=== PATIENT | male | born 1965 | race Caucasian/White ===

== ENCOUNTER 2018-03-16 10:57 | Inpatient (IN) | payer MEDICARE, MEDICAID ==
[~2018-03-16] VITALS: Ht 180.3 cm; Wt 112.9 kg
[2018-03-16 11:09] VITALS: BP 164/86
[2018-03-16 11:23] LABS: APPEARANCE,URINE CLEAR; BILIRUBIN, URINE NEGATIVE (NEGATIVE); COLOR,URINE PALE YELLOW; GLUCOSE, URINE (UA) NEGATIVE (NEGATIVE); KETONES,URINE NEGATIVE (NEGATIVE); LEUKOCYTE ESTERASE ,URINE NEGATIVE (NEGATIVE); NITRITE,URINE NEGATIVE (NEGATIVE); PH,URINE 7 (4.5-8.0); PROTEIN,URINE NEGATIVE (NEGATIVE); UROBILINOGEN,URINE NORMAL MG/DL (0.0-1.0)
--- NOTE | 2018-03-16 13:21 | Emergency Room Report ---
History of Present Illness General Chief Complaint: Male Urogenital Problems Source: Patient, EMS Present Illness HPI Patient presents with several days of penile pain. This only happens when he urinates. Otherwise there is no pain. It is in the mid shaft of the penis. He denies any blood or change in the color of the urine. No fevers or chills. No rectal pain. Moving his bowels without difficulty. At Board and Care. States no sexual activity. No testicular pain. Never with this problem before. No nausea or vomiting. No URI sy. No chest pain. Has chronic back pain due to osteoarthritis. This is unchanged. H/O schizophrenia. No anxiety or depression at this time. No rashes, joint pain, cough or dyspnea. Allergies: Coded Allergies: HYDROCODONE (Verified Allergy, Unknown, 03/16/18) MORPHINE (Verified Allergy, Unknown, 03/16/18) Patient History Past Medical History: see triage record Social History: Reports: smoking, alcohol use Social History Narrative Board and Care Reviewed Nursing Documentation: PMH: Agreed; PSxH: Agreed Nursing Documentation-PMH Hx Neurological Problems: Yes - depression, ETOH abuse, schizo Review of Systems All Other Systems: negative except mentioned in HPI Physical Exam Vital Signs Date Time Temp Pulse Resp B/P (MAP) Pulse Ox O2 Delivery O2 Flow Rate FiO2 03/16/18 10:58 98.2 105 20 164/86 94 Room Air 98.2 Sp02 EP Interpretation: reviewed, normal General Appearance: well appearing, no apparent distress, GCS 15 Head: normocephalic, atraumatic Eyes: bilateral eye normal inspection, bilateral eye PERRL ENT: hearing grossly normal, normal voice, moist mucus membranes Neck: full range of motion, supple Respiratory: lungs clear, normal breath sounds, no respiratory distress, speaking full sentences Cardiovascular #1: regular rate, rhythm Cardiovascular #2: 2+ radial (L) Gastrointestinal: normal bowel sounds, non tender, soft, no mass, overweight Genitourinary: no CVA tenderness, penis normal - circumcised, scrotum normal, other - urethral pain mid shaft, no discharge Musculoskeletal: no calf tenderness, other - wide based gait with bending at lower back Neurologic: alert, oriented x3, motor strength/tone normal, sensory intact, normal gait Psychiatric: mood/affect normal Skin: no rash, walker - small non-erythematous papule R groin area Lymphatic: no adenopathy Medical Decision Making Diagnostic Impression: Primary Impression: Urethritis Additional Impressions: Schizophrenia Qualified Codes: F20.9 - Schizophrenia, unspecified Dysuria ER Course Patient presents with dysuria and penile pain. DDx: UTI, prostatitis, urethritis amongst others. Patient not toxic at this time. Evaluation with UA. Sending for chlamydia and GC. Treatment with Pyridium. Patient improved with treatment. Urine now dark orange. States pain resolved. Start doxycycline. Dr. Temple sends a urine sample which shows pyuria and hematuria. He wants the patient admitted to the hospital for observation. Admit med obs. (It is anticipated that with Pyridium, that nitrite will test false positive.) Laboratory Tests Test 03/16/18 06:11 03/16/18 11:11 03/16/18 15:11 Chlamydia trachomatis RNA Pending Neisseria gonorrhoeae RNA Pending Urine Color Pale yellow Urine Appearance Clear Urine pH 7 (4.5-8.0) Urine Specific Rayle 1.005 (1.005-1.035) Urine Protein Negative (NEGATIVE) Urine Glucose (UA) Negative (NEGATIVE) Urine Ketones Negative (NEGATIVE) Urine Blood Negative (NEGATIVE) Urine Nitrite Negative (NEGATIVE) Urine Bilirubin Negative (NEGATIVE) Urine Urobilinogen Normal MG/DL (0.0-1.0) Urine Leukocyte Esterase Negative (NEGATIVE) White Blood Count 11.6 K/UL (4.8-10.8) H Red Blood Count 5.44 M/UL (4.70-6.10) Hemoglobin 15.6 G/DL (14.2-18.0) Hematocrit 46.4 % (42.0-52.0) Mean Corpuscular Volume 85 FL (80-99) Mean Corpuscular Hemoglobin 28.6 PG (27.0-31.0) Mean Corpuscular Hemoglobin Concent 33.5 G/DL (32.0-36.0) Red Cell Distribution Width 12.0 % (11.6-14.8) Platelet Count 328 K/UL (150-450) Mean Platelet Volume 5.8 FL (6.5-10.1) L Neutrophils (%) (Auto) 57.5 % (45.0-75.0) Lymphocytes (%) (Auto) 32.2 % (20.0-45.0) Monocytes (%) (Auto) 6.3 % (1.0-10.0) Eosinophils (%) (Auto) 2.9 % (0.0-3.0) Basophils (%) (Auto) 1.1 % (0.0-2.0) Sodium Level 138 MMOL/L (136-145) Potassium Level 3.9 MMOL/L (3.5-5.1) Chloride Level 104 MMOL/L (98-107) Carbon Dioxide Level 27 MMOL/L (21-32) Anion Gap 7 mmol/L (5-15) Blood Urea Nitrogen 15 mg/dL (7-18) Creatinine 1.1 MG/DL (0.55-1.30) Estimate Glomerular Filtration Rate > 60 mL/min (>60) Glucose Level 117 MG/DL (74-106) H Calcium Level 9.7 MG/DL (8.5-10.1) Last Vital Signs Date Time Temp Pulse Resp B/P (MAP) Pulse Ox O2 Delivery O2 Flow Rate FiO2 03/17/18 00:00 98.9 72 21 143/80 (101) 95 98.9 03/16/18 21:00 Room Air Status: improved Disposition: PLACE IN OBSERVATION Condition: Stable Referrals: Carley Temple MD (PCP) John Rasheed M.D. Mar 16, 2018 13:21
[2018-03-16 14:27] VITALS: BP 154/72
[2018-03-16 15:27] LABS: BASOPHILS % (AUTO) 1.1 % (0.0-2.0); EOSINOPHILS % (AUTO) 2.9 % (0.0-3.0); HEMATOCRIT 46.4 % (42.0-52.0); HEMOGLOBIN 15.6 G/DL (14.2-18.0); LYMPHOCYTES % (AUTO) 32.2 % (20.0-45.0); MEAN CORPUSCULAR VOLUME 85 FL (80-99); MONOCYTES % (AUTO) 6.3 % (1.0-10.0); NEUTROPHILS % (AUTO) 57.5 % (45.0-75.0); PLATELET COUNT 328 K/UL (150-450); RED BLOOD COUNT 5.44 M/UL (4.70-6.10); WHITE BLOOD COUNT 11.6 K/UL (4.8-10.8)
[2018-03-16 15:40] LABS: ANION GAP 7 mmol/L (5-15); BLOOD UREA NITROGEN 15 mg/dL (7-18); CALCIUM 9.7 MG/DL (8.5-10.1); CARBON DIOXIDE 27 MMOL/L (21-32); CHLORIDE 104 MMOL/L (98-107); CREATININE 1.1 MG/DL (0.55-1.30); POTASSIUM 3.9 MMOL/L (3.5-5.1); SODIUM 138 MMOL/L (136-145)
[2018-03-16 16:15] VITALS: BP 130/80
[2018-03-16] MEDS ORDERED: LAMOTRIGINE150 MG PO (16:55)
[2018-03-16] MEDS ORDERED: REMERON15 M1 ORAL (16:55)
[2018-03-16] MEDS ORDERED: LITHIUM CARBON300 M1 PO (16:55)
[2018-03-16] MEDS ORDERED: MIRTAZAPINE15 M3 ORAL (16:55)
[2018-03-16] MEDS ORDERED: ACETAMINOPHEN120 MG PO (17:03)
[2018-03-16] MEDS ORDERED: NEURONTIN300 MG ORAL (17:03)
[2018-03-16] MEDS ORDERED: BUPROPION HCL100 M1 ORAL (17:03)
[2018-03-16] MEDS ORDERED: DUONEB 0.5-3(2.53 ML HHN (17:03)
[2018-03-16] MEDS ORDERED: CLONAZEPAM0.5 M1 PO (17:03)
[2018-03-16] MEDS ORDERED: FAMOTIDINE20 MG ORAL (17:03)
[2018-03-16] MEDS ORDERED: DOCUSATE SODIU100 M2 ORAL (17:03)
[2018-03-16] MEDS ORDERED: ELIQUIS5 MG PO (17:03)
[2018-03-16] MEDS ORDERED: Albuterol/Ipratropium 3ml neb HHN PRN (17:15)
[2018-03-16] MEDS ORDERED: Isovue-300 100ml vial INJ PRN (17:45)
[2018-03-16] MEDS: BuPROPion SR 100mg tab ORAL SCH (18:29)
[2018-03-16] MEDS: Docusate 100mg cap ORAL SCH (18:29)
[2018-03-16 20:00] VITALS: BP 125/87
[2018-03-16] MEDS: Tamsulosin 0.4mg cap ORAL SCH (22:26)
--- NOTE | 2018-03-16 22:45 | Consultation ---
DATE OF CONSULTATION: 03/16/2018 UROLOGY CONSULTATION ATTENDING/CONSULTING PHYSICIAN: Carley Temple M.D. CHIEF COMPLAINT/HPI: I was asked by Dr. Temple to evaluate this 52-year-old gentleman regarding history of urethritis and dysuria. Briefly, the patient has a history of multiple medical issues including depression, schizophrenia, and alcohol abuse. He presented to the hospital with dysuria and symptoms of urethritis. A urine sample from outside reportedly revealed pyuria and hematuria. The patient was admitted from the ER and given the above, I was asked to evaluate the patient. PAST MEDICAL HISTORY: 1. Depression. 2. Alcohol abuse. 3. Schizophrenia. 4. Arthritis. 5. Acute appendicitis. PAST SURGICAL HISTORY: 1. Appendectomy. 2. Hernia repair. MEDICATIONS: Please see chart for current medications and administration details. Briefly, the patient is not receiving antibiotics. ALLERGIES: Include hydrocodone and morphine. SOCIAL HISTORY: Unremarkable for current tobacco, alcohol, or drug use. The patient has a history of alcohol abuse. FAMILY HISTORY: Noncontributory. REVIEW OF SYSTEMS: A 12-system review of systems was essentially unremarkable outside what is described above. PHYSICAL EXAMINATION: GENERAL: The patient is a middle-aged gentleman, awake, alert, oriented x4, pleasant, and in no obvious distress. HEENT: NC/AT. EOMI. NECK: Supple. Full range of motion. Oropharynx clear. CHEST: Within normal limits. ABDOMEN: Soft, nontender, and nondistended. Mildly obese. EXTREMITIES: Warm and well perfused. No cyanosis, clubbing, or edema. BACK: No CVA tenderness to percussion. NEUROLOGIC: Nonfocal. GENITOURINARY: Reveals a normal circumcised male phallus. No discharge, lesions, or curvature. There are bilateral descended testes and cord structures with no masses or tenderness to palpation. Digital rectal exam reveals approximately 40 grams prostate with some mild tenderness to palpation and duplication of symptoms. LABORATORY DATA: White blood cell count 11.6 and hematocrit 46.4. Sodium 138, potassium 3.9, chloride 104, bicarbonate 27, BUN 15, creatinine 1.1, and glucose 117. Calcium 9.7. Urinalysis, specific gravity 1.005, pH 7.0. Dip test negative for all findings. Gonorrhea and chlamydia testing pending. DIAGNOSTIC IMAGING: None. ASSESSMENT AND PLAN: In summary, the patient is a 52-year-old gentleman with a history of dysuria and urethritis. He presented to the hospital for evaluation of the same. Physical exam reveals some mild tenderness to palpation on prostate exam. Laboratory data is notable for a slightly elevated white blood cell count. Urinalysis was unremarkable and a gonorrhea and chlamydia check is pending. There is no relevant diagnostic imaging. Today at the bedside, I discussed these findings with the patient. It appears that he is suffering from mild prostatitis. As such, I have started him on some Rocephin IV and Flomax in an effort to alleviate his symptoms. The patient is otherwise well. He can be discharged tomorrow and follow up with me as an outpatient regarding the same. Thank you for allowing me to participate in the care of this nice gentleman. Please do not hesitate to contact me for any questions that you may further have regarding his care. I will be happy to see him with you as needed. Ben Salinas M.D. DR: JASON JOB#: [id number] CC:
[2018-03-17] VITALS: BP 143/80
--- NOTE | 2018-03-17 00:30 | History and Physical Report ---
DATE OF ADMISSION: 03/16/2018 HISTORY OF PRESENT ILLNESS: The patient is admitted for dysuria, urinary tract infection, increased frequency of urination, dysuria, as well as hematuria. The patient also has history of psychosis. The patient also denies nausea, vomiting, or diarrhea. Denies cough. Denies shortness of breath. Denies chills. PAST MEDICAL HISTORY: Significant for psychosis, tremors, anxiety, constipation, gastroesophageal reflux disease, and mood disorder. PAST SURGICAL HISTORY: Denies. ALLERGIES: Hydrocodone and morphine. SOCIAL HISTORY: Does have history of alcohol abuse. REVIEW OF SYSTEMS: HEENT: Denies headaches. RESPIRATORY: Denies shortness of breath. Denies cough. CARDIOVASCULAR: Denies chest pain. No orthopnea. GASTROINTESTINAL: Denies nausea, vomiting, or diarrhea. GENITOURINARY: Does have dysuria and increased urinary frequency and hematuria. 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 Feels weak. Does have history of tremors. PHYSICAL EXAMINATION: VITAL SIGNS: Temperature 98.2, pulse 78, and blood pressure 154/73. HEENT: PERRLA. NECK: Supple. No lymphadenopathy. CHEST: Clear to auscultation. CARDIOVASCULAR: Regular rate and rhythm. ABDOMEN: Soft and distended. Positive bowel sounds. GENITOURINARY: He has addy hematuria. EXTREMITIES: No edema. NEUROLOGIC: Generalized weakness. Tremors of upper extremity is chronic. LABORATORY DATA: WBC of 11.6, hemoglobin of 15.6, and platelets of 328,000. Sodium 138, potassium 3.9, BUN of 15, creatinine 1.1, and glucose 117. ASSESSMENT: Hematuria, urinary tract infection, as well as borderline potassium. PLAN: I have asked Dr. Quiñonez, , and Dr. Abundio Gleason to see the patient for the above-mentioned diagnoses and treatment. Antibiotics per ID doctor. Carley Temple M.D. DR: MAI JOB#: [id number] CC:
[2018-03-17 04:00] VITALS: BP 117/68
[2018-03-17 07:47] LABS: BASOPHILS % (AUTO) 1.1 % (0.0-2.0); EOSINOPHILS % (AUTO) 3.6 % (0.0-3.0); HEMATOCRIT 42.1 % (42.0-52.0); HEMOGLOBIN 14.1 G/DL (14.2-18.0); LYMPHOCYTES % (AUTO) 34.6 % (20.0-45.0); MEAN CORPUSCULAR VOLUME 86 FL (80-99); MONOCYTES % (AUTO) 9.9 % (1.0-10.0); NEUTROPHILS % (AUTO) 50.9 % (45.0-75.0); PLATELET COUNT 276 K/UL (150-450); RED BLOOD COUNT 4.92 M/UL (4.70-6.10); RED CELL DISTRIBUTION WIDTH 12.2 % (11.6-14.8)
[2018-03-17 08:00] VITALS: BP 124/84
[2018-03-17 08:06] LABS: ALANINE AMINOTRANSFERASE 27 U/L (12-78); ALBUMIN 3.2 G/DL (3.4-5.0); ALBUMIN/GLOBULIN RATIO 0.8 (1.0-2.7); ALKALINE PHOSPHATASE 74 U/L (46-116); ANION GAP 5 mmol/L (5-15); ASPARTATE AMINO TRANSFERASE 16 U/L (15-37); BILIRUBIN,TOTAL 0.3 MG/DL (0.2-1.0); BLOOD UREA NITROGEN 17 mg/dL (7-18); CALCIUM 9.1 MG/DL (8.5-10.1); CARBON DIOXIDE 28 MMOL/L (21-32); CHLORIDE 106 MMOL/L (98-107); CREATININE 0.9 MG/DL (0.55-1.30); SODIUM 138 MMOL/L (136-145)
[2018-03-17] MEDS: Docusate 100mg cap ORAL SCH ×2 (08:26→17:19)
[2018-03-17] MEDS: cefTRIAXone 1 GM in D5W 55 ML IVPB SCH (08:26)
[2018-03-17] MEDS: BuPROPion SR 100mg tab ORAL SCH (08:27)
[2018-03-17] MEDS: LaMICtal 150mg tab ORAL SCH (08:27)
--- NOTE | 2018-03-17 11:21 | GI Initial Consult Note ---
History of Present Illness General Date patient seen: Mar 17, 2018 Time patient seen: 11:13 Reason for Hospitalization: Male Urogenital Problems Referring physician: Tammy Obrien Reason for Consultation: Abdominal Pain Present Illness HPI Patient presents with several days of penile pain. This only happens when he urinates. Otherwise there is no pain. It is in the mid shaft of the penis. He denies any blood or change in the color of the urine. No fevers or chills. No rectal pain. Moving his bowels without difficulty. At Board and Care. States no sexual activity. No testicular pain. Never with this problem before. No nausea or vomiting. No URI symptoms. No chest pain. Has chronic back pain due to osteoarthritis. This is unchanged. H/O schizophrenia. No anxiety or depression at this time. No rashes, joint pain, cough or dyspnea. GI consulted for abdominal pain. Pt seen, awake A&Ox4 NAD with no active s/sx of N/V/D at this time. Patient is anxious about his dysuria. Denies any abdominal pain, N/V/D or diarrhea. Currently on a diet, tolerating well. Labs reviewed >> no anemia, no leukocytosis. Pt states no history of endoscopy / colonoscopy, refuses to have any procedures done at this time. Home Meds Reported Medications Acetaminophen* (TYLENOL*) 120 Mg Supp.rect, 325 MG PO Q6HR PRN for Pain Scale (3 -5), SUPP 03/16/18 Apixaban (ELIQUIS) 5 Mg Tablet, 5 MG PO BID, TAB 03/16/18 Ipratropium/Albuterol Sulfate (DuoNeb 0.5-3(2.5)mg/3ml) 3 Ml Ampul.neb, 3 ML HHN Q4HR PRN for Shortness of Breath, EA 03/16/18 Gabapentin (Neurontin) 300 Mg Capsule, 600 MG ORAL THREE TIMES A DAY, #15 CAP 0 Refills 03/16/18 Famotidine (FAMOTIDINE) 20 Mg Tablet, 20 MG ORAL BIDAC, #30 TAB 0 Refills 03/16/18 Docusate Sodium (DOCUSATE SODIUM) 100 Mg Tablet, 100 MG ORAL BID, #30 TAB 0 Refills 03/16/18 Clonazepam (CLONAZEPAM) 0.5 Mg Tab.rapdis, 0.5 MG PO QHS, TAB 03/16/18 Bupropion Sr* (BUPROPION SR*) 100 Mg Tablet.er, 100 MG ORAL BID, TAB 03/16/18 Mirtazapine* (MIRTAZAPINE*) 15 Mg Tablet, 15 MG ORAL DAILY, TAB 03/16/18 Mirtazapine (REMERON) 15 Mg Tab.rapdis, 15 MG ORAL BEDTIME, TAB 03/16/18 [place]lap Carbonate (LITHIUM CARBONATE) 300 Mg Tablet, 300 MG PO BID, TAB 03/16/18 Lamotrigine (LAMOTRIGINE) 150 Mg Tablet, 150 MG PO DAILY, TAB 03/16/18 Med list reviewed/reconciled: Yes Allergies: Coded Allergies: HYDROCODONE (Verified Allergy, Unknown, 03/16/18) MORPHINE (Verified Allergy, Unknown, 03/16/18) Patient History History Provided By: Patient, Medical Record PMH Narrative Past Medical History: see triage record Social History: Reports: smoking, alcohol use Social History Narrative Board and Care Reviewed Nursing Documentation: PMH: Agreed; PSxH: Agreed Nursing Documentation-PMH Hx Neurological Problems: Yes - depression, ETOH abuse, schizo Review of Systems All Other Systems: negative except mentioned in HPI Physical Exam Vital Signs Date Time Temp Pulse Resp B/P (MAP) Pulse Ox O2 Delivery O2 Flow Rate FiO2 03/16/18 10:58 98.2 105 20 164/86 94 Room Air 98.2 Sp02 EP Interpretation: reviewed, normal Labs Laboratory Tests Test 03/16/18 15:11 03/17/18 06:45 White Blood Count 11.6 K/UL (4.8-10.8) H 9.0 K/UL (4.8-10.8) Red Blood Count 5.44 M/UL (4.70-6.10) 4.92 M/UL (4.70-6.10) Hemoglobin 15.6 G/DL (14.2-18.0) 14.1 G/DL (14.2-18.0) L Hematocrit 46.4 % (42.0-52.0) 42.1 % (42.0-52.0) Mean Corpuscular Volume 85 FL (80-99) 86 FL (80-99) Mean Corpuscular Hemoglobin 28.6 PG (27.0-31.0) 28.7 PG (27.0-31.0) Mean Corpuscular Hemoglobin Concent 33.5 G/DL (32.0-36.0) 33.5 G/DL (32.0-36.0) Red Cell Distribution Width 12.0 % (11.6-14.8) 12.2 % (11.6-14.8) Platelet Count 328 K/UL (150-450) 276 K/UL (150-450) Mean Platelet Volume 5.8 FL (6.5-10.1) L 5.9 FL (6.5-10.1) L Neutrophils (%) (Auto) 57.5 % (45.0-75.0) 50.9 % (45.0-75.0) Lymphocytes (%) (Auto) 32.2 % (20.0-45.0) 34.6 % (20.0-45.0) Monocytes (%) (Auto) 6.3 % (1.0-10.0) 9.9 % (1.0-10.0) Eosinophils (%) (Auto) 2.9 % (0.0-3.0) 3.6 % (0.0-3.0) H Basophils (%) (Auto) 1.1 % (0.0-2.0) 1.1 % (0.0-2.0) Sodium Level 138 MMOL/L (136-145) 138 MMOL/L (136-145) Potassium Level 3.9 MMOL/L (3.5-5.1) 4.0 MMOL/L (3.5-5.1) Chloride Level 104 MMOL/L (98-107) 106 MMOL/L (98-107) Carbon Dioxide Level 27 MMOL/L (21-32) 28 MMOL/L (21-32) Anion Gap 7 mmol/L (5-15) 5 mmol/L (5-15) Blood Urea Nitrogen 15 mg/dL (7-18) 17 mg/dL (7-18) Creatinine 1.1 MG/DL (0.55-1.30) 0.9 MG/DL (0.55-1.30) Estimat Glomerular Filtration Rate > 60 mL/min (>60) > 60 mL/min (>60) Glucose Level 117 MG/DL (74-106) H 106 MG/DL (74-106) Calcium Level 9.7 MG/DL (8.5-10.1) 9.1 MG/DL (8.5-10.1) Total Bilirubin 0.3 MG/DL (0.2-1.0) Aspartate Amino Transf (AST/SGOT) 16 U/L (15-37) Alanine Aminotransferase (ALT/SGPT) 27 U/L (12-78) Alkaline Phosphatase 74 U/L (46-116) Total Protein 7.2 G/DL (6.4-8.2) Albumin 3.2 G/DL (3.4-5.0) L Globulin 4.0 g/dL Albumin/Globulin Ratio 0.8 (1.0-2.7) L General Appearance: well appearing, no apparent distress, alert Head: normocephalic EENT: PERRL/EOMI, normal ENT inspection Neck: supple Respiratory: normal breath sounds, no respiratory distress Cardiovascular: normal rate Gastrointestinal: normal inspection, non tender, soft, normal bowel sounds, non -distended Rectal: deferred Genitourinary: deferred Musculoskeletal: normal inspection, back normal Neurologic: normal inspection, alert, oriented x3, responsive Psychiatric: normal inspection, judgement/insight normal, memory normal Skin: normal inspection, normal color, no rash, warm/dry, palpation normal, well hydrated Lymphatic: normal inspection, no adenopathy Current Medications Current Medications Medications (Trade) Dose Ordered Sig/Temi Route PRN Reason Start Time Stop Time Status Last Admin Dose Admin Acetaminophen (Tylenol) 325 mg Q6H PRN ORAL For Pain Level <=5 03/16/18 18:30 04/15/18 18:29 Albuterol/ Ipratropium (Albuterol/ Ipratropium) 3 ml Q4H PRN HHN Shortness of Breath 03/16/18 17:15 03/21/18 17:14 Barium Sulfate (Readi-Cat 2) 450 ml NOW PRN ORAL Radiology Procedure 03/16/18 17:45 03/18/18 17:44 Bupropion HCl (Wellbutrin SR) 100 mg BID ORAL 03/16/18 18:00 04/15/18 17:59 03/17/18 08:27 Ceftriaxone Sodium 1 gm/ Dextrose 55 ml @ 110 mls/hr DAILY IVPB 03/17/18 09:00 03/24/18 08:59 03/17/18 08:26 Docusate Sodium (Colace) 100 mg BID ORAL 03/16/18 18:00 04/15/18 17:59 03/17/18 08:26 Famotidine (Pepcid) 20 mg BIDBL ORAL 03/17/18 06:30 04/16/18 06:29 03/17/18 06:05 Gabapentin (Neurontin) 600 mg THREE TIMES A DAY ORAL 03/17/18 13:00 04/15/18 12:59 Iopamidol (Isovue-300 100ml) 100 ml NOW PRN INJ Radiology Procedure 03/16/18 17:45 03/18/18 17:44 Lamotrigine (LaMICtal) 150 mg DAILY ORAL 03/17/18 09:00 04/16/18 08:59 03/17/18 08:27 Mirtazapine (Remeron) 15 mg DAILY ORAL 03/17/18 09:00 04/16/18 08:59 03/17/18 08:27 Tamsulosin HCl (Flomax) 0.4 mg BEDTIME ORAL 03/16/18 22:00 04/15/18 21:59 03/16/18 22:26 GI: Plan Problems: (1) Dysuria (2) Schizophrenia (3) Abdominal pain Plan symptomatic treatment at this time, fu urology recs zofran prn colace H2B pain mgmt abx fu labs Discussed with Dr. Kidd. Thank you for this patient referral, we will follow. The patient was seen and examined at bedside and all new and available data was reviewed in the patients chart. I agree with the above findings, impression and plan. (Patient seen earlier today. Signature stamp does not reflect patient encounter time.). - MD Parul Ribeiro,[facility] SECOND WATCH SERGEANT Mar 17, 2018 11:21
--- NOTE | 2018-03-17 11:37 | Diagnostic Imaging Report ---
Indication: Dysuria, hematuria, urinary tract infection, urinary frequency Technique: Precontrast spiral acquisitions obtained through the abdomen and pelvis. IV administration nonionic contrast. No IV contrast, per urinary protocol Multiphasic spiral acquisitions obtained through the abdomen pelvis Multiplanar reconstructions were generated. Total dose length product 4913 mGycm. CTDIvol(s) 25, 8, 56, 21, 24, 23 mGy. Radiation dose was minimized using automated exposure control Comparison: none Findings: Both kidneys demonstrate lobulated contours, which may indicate parenchymal scarring. No renal or ureteral calculi, hydronephrosis, or hydroureter demonstrated. No evidence of renal parenchymal mass or cyst. The renal collecting systems and ureters are unremarkable. The ureters are normal in caliber, both well filled with contrast on the delayed images. The bladder is somewhat thick walled. The prostate is not enlarged. The seminal vesicles appear unremarkable. The liver is diffusely hypoattenuating, consistent with diffuse fatty change. No focal hepatic abnormality. The gallbladder, bile ducts, pancreas, spleen, adrenals are all unremarkable. Prominent nodes are seen in the right lower quadrant mesenteric root. No retroperitoneal mass or adenopathy. The appendix is not definitely visualized, but no findings to suggest acute appendicitis are evident. No evidence of diverticulosis or diverticulitis. No small bowel distention. No free or loculated intraperitoneal gas or fluid. Distal esophagus, stomach, duodenum are unremarkable. The included lung bases demonstrate some lingular scarring or atelectasis. The bones demonstrate minimal degenerative spondylosis changes Impression: Mild bladder wall thickening, could indicate mild cystitis changes. Correlate with clinical findings No definite acute upper urinary tract abnormality or upper urinary tract findings to suggest etiology of stated clinical history of dysuria hematuria. Mildly lobulated renal contours could indicate chronic scarring Fatty liver Nonspecific prominent right lower quadrant lymph nodes Incidental findings of minimal scarring or atelectasis in the lingula of the left pulmonary upper lobe, minimal degenerative spondylosis The CT scanner at [facility] is accredited by the [employer] and the scans are performed using protocols designed to limit radiation exposure to as low as reasonably achievable to attain images of sufficient resolution adequate for diagnostic evaluation.
[2018-03-17 12:00] VITALS: BP 115/60
--- NOTE | 2018-03-17 12:46 | Consultation ---
History of Present Illness General Date patient seen: Mar 17, 2018 Chief Complaint: Male Urogenital Problems Reason for Consultation: Abdominal Pain Present Illness HPI The patient has hx if bipolar d/o and anxiety who is admitted for dysuria, urinary tract infection, increased frequency of urination, dysuria, as well as hematuria. the pt is restless and anxious. the pt has mood swings. and c/o drowsiness. Allergies: Coded Allergies: HYDROCODONE (Verified Allergy, Unknown, 03/16/18) MORPHINE (Verified Allergy, Unknown, 03/16/18) Medication History Scheduled Apixaban (Eliquis), 5 MG PO BID, (Reported) Bupropion Sr* (Bupropion Sr*), 100 MG ORAL BID, (Reported) Clonazepam (Clonazepam), 0.5 MG PO QHS, (Reported) Docusate Sodium (Docusate Sodium), 100 MG ORAL BID, (Reported) Famotidine (Famotidine), 20 MG ORAL BIDAC, (Reported) Gabapentin (Neurontin), 600 MG ORAL THREE TIMES A DAY, (Reported) Lamotrigine (Lamotrigine), 150 MG PO DAILY, (Reported) Mayfair Carbonate (Mayfair Carbonate), 300 MG PO BID, (Reported) Mirtazapine (Remeron), 15 MG ORAL BEDTIME, (Reported) Mirtazapine* (Mirtazapine*), 15 MG ORAL DAILY, (Reported) Scheduled PRN Acetaminophen* (Tylenol*), 325 MG PO Q6HR PRN for Pain Scale (3-5), (Reported) Ipratropium/Albuterol Sulfate (DuoNeb 0.5-3(2.5)mg/3ml), 3 ML HHN Q4HR PRN for Shortness of Breath, (Reported) Patient History Limited by: medical condition History Provided By: Patient, Medical Record, PMD Healthcare decision maker Patient Resuscitation status Full Code Advanced Directive on File No Past Medical/Surgical History Past Medical/Surgical History: (1) Hematuria (2) Schizophrenia (3) Urethritis (4) Dysuria (5) Abdominal pain Review of Systems Psychiatric: Reports: prior hx, anxiety, depressed feelings, emotional problems Physical Exam General Appearance: alert, moderate distress Neurologic: oriented x 3, responsive, depressed affect Last 24 Hour Vital Signs Date Time Temp Pulse Resp B/P (MAP) Pulse Ox O2 Delivery O2 Flow Rate FiO2 03/17/18 12:00 98.5 100 20 115/60 (78) 94 98.5 03/17/18 08:15 Room Air 03/17/18 08:00 98.7 97 19 124/84 (97) 94 98.7 03/17/18 04:00 98.2 78 20 117/68 (84) 94 98.2 03/17/18 00:00 98.9 72 21 143/80 (101) 95 98.9 03/16/18 21:00 Room Air 03/16/18 20:00 97.4 93 21 125/87 (100) 93 97.4 03/16/18 16:15 96.8 105 20 130/80 (97) 96.8 03/16/18 16:07 Room Air 03/16/18 16:03 Room Air 03/16/18 16:01 98.2 78 18 154/72 96 Room Air 98.2 03/16/18 14:27 98.2 78 18 154/72 96 Room Air 98.2 Intake and Output 03/16/18 03/17/18 19:00 07:00 Output Total 950 ml Balance -950 ml Output Urine Total 950 ml # Voids 1 Laboratory Tests Test 03/16/18 15:11 03/17/18 06:45 White Blood Count 11.6 K/UL (4.8-10.8) H 9.0 K/UL (4.8-10.8) Red Blood Count 5.44 M/UL (4.70-6.10) 4.92 M/UL (4.70-6.10) Hemoglobin 15.6 G/DL (14.2-18.0) 14.1 G/DL (14.2-18.0) L Hematocrit 46.4 % (42.0-52.0) 42.1 % (42.0-52.0) Mean Corpuscular Volume 85 FL (80-99) 86 FL (80-99) Mean Corpuscular Hemoglobin 28.6 PG (27.0-31.0) 28.7 PG (27.0-31.0) Mean Corpuscular Hemoglobin Concent 33.5 G/DL (32.0-36.0) 33.5 G/DL (32.0-36.0) Red Cell Distribution Width 12.0 % (11.6-14.8) 12.2 % (11.6-14.8) Platelet Count 328 K/UL (150-450) 276 K/UL (150-450) Mean Platelet Volume 5.8 FL (6.5-10.1) L 5.9 FL (6.5-10.1) L Neutrophils (%) (Auto) 57.5 % (45.0-75.0) 50.9 % (45.0-75.0) Lymphocytes (%) (Auto) 32.2 % (20.0-45.0) 34.6 % (20.0-45.0) Monocytes (%) (Auto) 6.3 % (1.0-10.0) 9.9 % (1.0-10.0) Eosinophils (%) (Auto) 2.9 % (0.0-3.0) 3.6 % (0.0-3.0) H Basophils (%) (Auto) 1.1 % (0.0-2.0) 1.1 % (0.0-2.0) Sodium Level 138 MMOL/L (136-145) 138 MMOL/L (136-145) Potassium Level 3.9 MMOL/L (3.5-5.1) 4.0 MMOL/L (3.5-5.1) Chloride Level 104 MMOL/L (98-107) 106 MMOL/L (98-107) Carbon Dioxide Level 27 MMOL/L (21-32) 28 MMOL/L (21-32) Anion Gap 7 mmol/L (5-15) 5 mmol/L (5-15) Blood Urea Nitrogen 15 mg/dL (7-18) 17 mg/dL (7-18) Creatinine 1.1 MG/DL (0.55-1.30) 0.9 MG/DL (0.55-1.30) Estimat Glomerular Filtration Rate > 60 mL/min (>60) > 60 mL/min (>60) Glucose Level 117 MG/DL (74-106) H 106 MG/DL (74-106) Calcium Level 9.7 MG/DL (8.5-10.1) 9.1 MG/DL (8.5-10.1) Total Bilirubin 0.3 MG/DL (0.2-1.0) Aspartate Amino Transf (AST/SGOT) 16 U/L (15-37) Alanine Aminotransferase (ALT/SGPT) 27 U/L (12-78) Alkaline Phosphatase 74 U/L (46-116) Total Protein 7.2 G/DL (6.4-8.2) Albumin 3.2 G/DL (3.4-5.0) L Globulin 4.0 g/dL Albumin/Globulin Ratio 0.8 (1.0-2.7) L Height (Feet): 5 Height (Inches): 11.00 Weight (Pounds): 249 Medications Current Medications Medications (Trade) Dose Ordered Sig/Temi Route PRN Reason Start Time Stop Time Status Last Admin Dose Admin Acetaminophen (Tylenol) 325 mg Q6H PRN ORAL For Pain Level <=5 03/16/18 18:30 04/15/18 18:29 Albuterol/ Ipratropium (Albuterol/ Ipratropium) 3 ml Q4H PRN HHN Shortness of Breath 03/16/18 17:15 03/21/18 17:14 Barium Sulfate (Readi-Cat 2) 450 ml NOW PRN ORAL Radiology Procedure 03/16/18 17:45 03/18/18 17:44 Bupropion HCl (Wellbutrin SR) 100 mg BID ORAL 03/16/18 18:00 04/15/18 17:59 03/17/18 08:27 Ceftriaxone Sodium 1 gm/ Dextrose 55 ml @ 110 mls/hr DAILY IVPB 03/17/18 09:00 03/24/18 08:59 03/17/18 08:26 Docusate Sodium (Colace) 100 mg TWICE A DAY ORAL 03/17/18 18:00 04/16/18 17:59 Famotidine (Pepcid) 20 mg BIDBL ORAL 03/17/18 06:30 04/16/18 06:29 03/17/18 12:10 Gabapentin (Neurontin) 600 mg THREE TIMES A DAY ORAL 03/17/18 13:00 04/15/18 12:59 03/17/18 12:10 Iopamidol (Isovue-300 100ml) 100 ml NOW PRN INJ Radiology Procedure 03/16/18 17:45 03/18/18 17:44 Lamotrigine (LaMICtal) 150 mg DAILY ORAL 03/17/18 09:00 04/16/18 08:59 03/17/18 08:27 Mirtazapine (Remeron) 15 mg DAILY ORAL 03/17/18 09:00 04/16/18 08:59 03/17/18 08:27 Tamsulosin HCl (Flomax) 0.4 mg BEDTIME ORAL 03/16/18 22:00 04/15/18 21:59 03/16/18 22:26 Assessment/Plan Problem List: (1) Schizophrenia ICD Codes: F20.9 - Schizophrenia, unspecified SNOMED: 79691058 Qualifiers: Qualified Codes: F20.9 - Schizophrenia, unspecified (2) Bipolar 1 disorder ICD Codes: F31.9 - Bipolar disorder, unspecified SNOMED: 361574002 Status: stable Assessment/Plan Wellbutrin was decrease to 100mg qam Remeron 15mg was change to qhs start lithium Kaveh Kitchen MD Mar 17, 2018 12:46
--- NOTE | 2018-03-17 14:30 | General Progress Note ---
Assessment/Plan Problem List: (1) Schizophrenia ICD Codes: F20.9 - Schizophrenia, unspecified SNOMED: 66582378 Qualifiers: Qualified Codes: F20.9 - Schizophrenia, unspecified (2) Dysuria ICD Codes: R30.0 - Dysuria SNOMED: 43891625 (3) Hematuria ICD Codes: R31.9 - Hematuria, unspecified SNOMED: 80764622 (4) Bipolar 1 disorder ICD Codes: F31.9 - Bipolar disorder, unspecified SNOMED: 127378452 (5) Urethritis ICD Codes: N34.2 - Other urethritis SNOMED: 24078014 Status: progressing Assessment/Plan uti abx per id hematurea treatment per dr townsend psychosis afebrile Subjective ROS Limited/Unobtainable: Yes Allergies: Coded Allergies: HYDROCODONE (Verified Allergy, Unknown, 03/16/18) MORPHINE (Verified Allergy, Unknown, 03/16/18) Objective Last 24 Hour Vital Signs Date Time Temp Pulse Resp B/P (MAP) Pulse Ox O2 Delivery O2 Flow Rate FiO2 03/17/18 12:00 98.5 100 20 115/60 (78) 94 98.5 03/17/18 08:15 Room Air 03/17/18 08:00 98.7 97 19 124/84 (97) 94 98.7 03/17/18 04:00 98.2 78 20 117/68 (84) 94 98.2 03/17/18 00:00 98.9 72 21 143/80 (101) 95 98.9 03/16/18 21:00 Room Air 03/16/18 20:00 97.4 93 21 125/87 (100) 93 97.4 03/16/18 16:15 96.8 105 20 130/80 (97) 96.8 03/16/18 16:07 Room Air 03/16/18 16:03 Room Air 03/16/18 16:01 98.2 78 18 154/72 96 Room Air 98.2 Intake and Output 03/16/18 03/17/18 19:00 07:00 Output Total 950 ml Balance -950 ml Output Urine Total 950 ml # Voids 1 Laboratory Tests 03/16/18 15:11: White Blood Count 11.6H, Red Blood Count 5.44, Hemoglobin 15.6, Hematocrit 46.4 , Mean Corpuscular Volume 85, Mean Corpuscular Hemoglobin 28.6, Mean Corpuscular Hemoglobin Concent 33.5, Red Cell Distribution Width 12.0, Platelet Count 328, Mean Platelet Volume 5.8L, Neutrophils (%) (Auto) 57.5, Lymphocytes ( %) (Auto) 32.2, Monocytes (%) (Auto) 6.3, Eosinophils (%) (Auto) 2.9, Basophils (%) (Auto) 1.1, Sodium Level 138, Potassium Level 3.9, Chloride Level 104, Carbon Dioxide Level 27, Anion Gap 7, Blood Urea Nitrogen 15, Creatinine 1.1, Estimat Glomerular Filtration Rate > 60, Glucose Level 117H, Calcium Level 9.7 03/17/18 06:45: White Blood Count 9.0, Red Blood Count 4.92, Hemoglobin 14.1L, Hematocrit 42.1, Mean Corpuscular Volume 86, Mean Corpuscular Hemoglobin 28.7, Mean Corpuscular Hemoglobin Concent 33.5, Red Cell Distribution Width 12.2, Platelet Count 276, Mean Platelet Volume 5.9L, Neutrophils (%) (Auto) 50.9, Lymphocytes (%) (Auto) 34.6, Monocytes (%) (Auto) 9.9, Eosinophils (%) (Auto) 3.6H, Basophils (%) (Auto ) 1.1, Sodium Level 138, Potassium Level 4.0, Chloride Level 106, Carbon Dioxide Level 28, Anion Gap 5, Blood Urea Nitrogen 17, Creatinine 0.9, Estimat Glomerular Filtration Rate > 60, Glucose Level 106, Calcium Level 9.1, Total Bilirubin 0.3, Aspartate Amino Transf (AST/SGOT) 16, Alanine Aminotransferase ( ALT/SGPT) 27, Alkaline Phosphatase 74, Total Protein 7.2, Albumin 3.2L, Globulin 4.0, Albumin/Globulin Ratio 0.8L Height (Feet): 5 Height (Inches): 11.00 Weight (Pounds): 249 Cardiovascular: normal rate Respiratory/Chest: lungs clear Abdomen: soft Carley Temple MD Mar 17, 2018 14:30
[2018-03-17 16:00] VITALS: BP 138/89
--- NOTE | 2018-03-17 17:45 | Consultation ---
DATE OF CONSULTATION: 03/17/2018 INFECTIOUS DISEASE CONSULTATION PRIMARY ATTENDING PHYSICIAN: Carley Temple M.D. REASON FOR CONSULT: Cystitis and urethritis. HISTORY OF PRESENT ILLNESS: This is a 52-year-old male, admitted from a senior living facility complaining of dysuria for one month and feeling pain in penal area when passing urine. There is no fever and no genital discharge. The patient empirically started on ceftriaxone and feels better today. He has no sexual activity. PAST MEDICAL HISTORY: Significant for schizophrenia, depression, and alcohol abuse. MEDICATION: [place], Wellbutrin, Colace, gabapentin, lamotrigine, ceftriaxone, Flomax, Pepcid, Tylenol, and DuoNeb inhaler. ALLERGY: Allergic to morphine and hydrocodone. SOCIAL HISTORY: Lives at [facility]. . Smokes 8 cigarettes daily. Previously, used to smoke 2 packs a day. Denies alcohol and drug abuse. REVIEW OF SYSTEMS: Today, he is symptom free. He has no complaints. PHYSICAL EXAMINATION: VITAL SIGNS: Temperature 98.5, pulse 100, and blood pressure 110/56. GENERAL APPEARANCE: No acute distress. Well developed. He lost some weight. HEAD AND NECK: [place] conjunctiva. HEART: Regular. LUNGS: Clear. ABDOMEN: Soft and nontender. Bowel sounds present. EXTREMITY: No edema. GENITOURINARY: No discharge from the penile area. LABORATORY AND DIAGNOSTIC DATA: WBC at the time of admission was 11.6, currently 9, hemoglobin 14.1, hematocrit 42.1, and platelets is 276,000. Sodium 138, potassium 4, chloride 106, bicarb 28, BUN 17, and creatinine 0.9. Albumin 3.2. UA was negative for nitrite, WBC, blood, and leukocyte esterase. The patient had a CT scan of the abdomen and pelvis that showed fatty liver and mild bladder wall thickening would indicate mild cystitis. IMPRESSION: Mild cystitis. The patient may have urethritis also. He has schizophrenia and bipolar type 1. He has fatty liver. RECOMMENDATION: We will continue ceftriaxone for now. We will follow up the chlamydia and gonorrhea tests. At the end of my exam, I thank Dr. Temple for involving me in the care of this patient. Abundio Gleason M.D. DR: ALIYAH JOB#: [id number] CC:
[2018-03-17 20:00] VITALS: BP 132/93
[2018-03-17] MEDS: Tamsulosin 0.4mg cap ORAL SCH (21:16)
[2018-03-18] VITALS: BP 144/93
[2018-03-18 04:00] VITALS: BP 155/96
[2018-03-18 06:35] LABS: BASOPHILS % (AUTO) 1.1 % (0.0-2.0); EOSINOPHILS % (AUTO) 3.9 % (0.0-3.0); HEMATOCRIT 41.4 % (42.0-52.0); LYMPHOCYTES % (AUTO) 38.5 % (20.0-45.0); MEAN CORPUSCULAR VOLUME 86 FL (80-99); MONOCYTES % (AUTO) 10.2 % (1.0-10.0); NEUTROPHILS % (AUTO) 46.3 % (45.0-75.0); PLATELET COUNT 277 K/UL (150-450); RED BLOOD COUNT 4.81 M/UL (4.70-6.10); WHITE BLOOD COUNT 9.4 K/UL (4.8-10.8)
[2018-03-18 07:01] LABS: ANION GAP 10 mmol/L (5-15); BLOOD UREA NITROGEN 19 mg/dL (7-18); CARBON DIOXIDE 25 MMOL/L (21-32); CHLORIDE 106 MMOL/L (98-107); CREATININE 0.9 MG/DL (0.55-1.30); POTASSIUM 3.9 MMOL/L (3.5-5.1); SODIUM 141 MMOL/L (136-145)
[2018-03-18 08:00] VITALS: BP 120/89
[2018-03-18] MEDS: Docusate 100mg cap ORAL SCH ×2 (08:18→17:53)
[2018-03-18] MEDS: LaMICtal 150mg tab ORAL SCH (08:19)
[2018-03-18] MEDS: BuPROPion SR 100mg tab ORAL SCH (08:19)
[2018-03-18] MEDS: cefTRIAXone 1 GM in D5W 55 ML IVPB SCH (08:31)
--- NOTE | 2018-03-18 11:05 | GI Progress Note ---
Assessment/Plan Problems: (1) Abdominal pain ICD Codes: R10.9 - Unspecified abdominal pain SNOMED: 39891814 (2) Bipolar 1 disorder ICD Codes: F31.9 - Bipolar disorder, unspecified SNOMED: 543583951 (3) Dysuria ICD Codes: R30.0 - Dysuria SNOMED: 17874118 (4) Schizophrenia ICD Codes: F20.9 - Schizophrenia, unspecified SNOMED: 18460140 Qualifiers: Qualified Codes: F20.9 - Schizophrenia, unspecified (5) Urethritis ICD Codes: N34.2 - Other urethritis SNOMED: 77617940 Status: stable Status Narrative Discussed with Dr. Kidd. Assessment/Plan symptomatic treatment at this time, fu urology recs zofran prn colace H2B pain mgmt abx fu labs The patient was seen and examined at bedside and all new and available data was reviewed in the patients chart. I agree with the above findings, impression and plan. (Patient seen earlier today. Signature stamp does not reflect patient encounter time.). - Miguel Kidd MD Subjective Gastrointestinal/Abdominal: Reports: no symptoms Objective Last 24 Hour Vital Signs Date Time Temp Pulse Resp B/P (MAP) Pulse Ox O2 Delivery O2 Flow Rate FiO2 03/18/18 10:42 96 18 Room Air 21 03/18/18 09:00 Room Air 03/18/18 08:50 97.9 03/18/18 08:20 97.9 03/18/18 08:00 98.0 113 18 120/89 (99) 95 98.0 96 03/18/18 04:00 97.9 94 20 155/96 (115) 97 97.9 03/18/18 00:00 97.7 102 20 144/93 (110) 93 97.7 03/17/18 21:00 Room Air 03/17/18 20:00 97.5 102 18 132/93 (106) 94 97.5 03/17/18 16:00 98.1 100 19 138/89 (105) 94 98.1 03/17/18 12:00 98.5 100 20 115/60 (78) 94 98.5 Intake and Output 03/17/18 03/18/18 19:00 07:00 Intake Total 695 ml 720 ml Output Total 1475 ml 2100 ml Balance -780 ml -1380 ml Intake Oral 640 ml 720 ml IV Total 55 ml Output Urine Total 1475 ml 2100 ml Laboratory Tests Test 03/18/18 05:10 White Blood Count 9.4 K/UL (4.8-10.8) Red Blood Count 4.81 M/UL (4.70-6.10) Hemoglobin 14.0 G/DL (14.2-18.0) L Hematocrit 41.4 % (42.0-52.0) L Mean Corpuscular Volume 86 FL (80-99) Mean Corpuscular Hemoglobin 29.1 PG (27.0-31.0) Mean Corpuscular Hemoglobin Concent 33.9 G/DL (32.0-36.0) Red Cell Distribution Width 12.0 % (11.6-14.8) Platelet Count 277 K/UL (150-450) Mean Platelet Volume 6.0 FL (6.5-10.1) L Neutrophils (%) (Auto) 46.3 % (45.0-75.0) Lymphocytes (%) (Auto) 38.5 % (20.0-45.0) Monocytes (%) (Auto) 10.2 % (1.0-10.0) H Eosinophils (%) (Auto) 3.9 % (0.0-3.0) H Basophils (%) (Auto) 1.1 % (0.0-2.0) Sodium Level 141 MMOL/L (136-145) Potassium Level 3.9 MMOL/L (3.5-5.1) Chloride Level 106 MMOL/L (98-107) Carbon Dioxide Level 25 MMOL/L (21-32) Anion Gap 10 mmol/L (5-15) Blood Urea Nitrogen 19 mg/dL (7-18) H Creatinine 0.9 MG/DL (0.55-1.30) Estimat Glomerular Filtration Rate > 60 mL/min (>60) Glucose Level 102 MG/DL (74-106) Calcium Level 9.0 MG/DL (8.5-10.1) Height (Feet): 5 Height (Inches): 11.00 Weight (Pounds): 249 General Appearance: WD/WN, no apparent distress, alert Cardiovascular: normal rate Respiratory/Chest: normal breath sounds, no respiratory distress Abdominal Exam: normal bowel sounds, non tender, soft Extremities: normal range of motion, non-tender Sandra Teran NP Mar 18, 2018 11:05
[2018-03-18 12:00] VITALS: BP 137/41
--- NOTE | 2018-03-18 12:41 | General Progress Note ---
Assessment/Plan Problem List: (1) Schizophrenia ICD Codes: F20.9 - Schizophrenia, unspecified SNOMED: 77657526 Qualifiers: Qualified Codes: F20.9 - Schizophrenia, unspecified (2) Dysuria ICD Codes: R30.0 - Dysuria SNOMED: 74346169 (3) Hematuria ICD Codes: R31.9 - Hematuria, unspecified SNOMED: 97378760 (4) Bipolar 1 disorder ICD Codes: F31.9 - Bipolar disorder, unspecified SNOMED: 190589462 (5) Urethritis ICD Codes: N34.2 - Other urethritis SNOMED: 71116117 Status: progressing Assessment/Plan uti abx per id hematurea resolved afebrile dysurea improving Subjective ROS Limited/Unobtainable: Yes Allergies: Coded Allergies: HYDROCODONE (Verified Allergy, Unknown, 03/16/18) MORPHINE (Verified Allergy, Unknown, 03/16/18) Objective Last 24 Hour Vital Signs Date Time Temp Pulse Resp B/P (MAP) Pulse Ox O2 Delivery O2 Flow Rate FiO2 03/18/18 12:00 98.7 94 19 137/41 (73) 94 98.7 03/18/18 10:42 96 18 Room Air 21 03/18/18 09:00 Room Air 03/18/18 08:50 97.9 03/18/18 08:20 97.9 03/18/18 08:00 98.0 113 18 120/89 (99) 95 98.0 96 03/18/18 04:00 97.9 94 20 155/96 (115) 97 97.9 03/18/18 00:00 97.7 102 20 144/93 (110) 93 97.7 03/17/18 21:00 Room Air 03/17/18 20:00 97.5 102 18 132/93 (106) 94 97.5 03/17/18 16:00 98.1 100 19 138/89 (105) 94 98.1 Intake and Output 03/17/18 03/18/18 19:00 07:00 Intake Total 695 ml 720 ml Output Total 1475 ml 2100 ml Balance -780 ml -1380 ml Intake Oral 640 ml 720 ml IV Total 55 ml Output Urine Total 1475 ml 2100 ml Laboratory Tests 03/18/18 05:10: White Blood Count 9.4, Red Blood Count 4.81, Hemoglobin 14.0L, Hematocrit 41.4L , Mean Corpuscular Volume 86, Mean Corpuscular Hemoglobin 29.1, Mean Corpuscular Hemoglobin Concent 33.9, Red Cell Distribution Width 12.0, Platelet Count 277, Mean Platelet Volume 6.0L, Neutrophils (%) (Auto) 46.3, Lymphocytes ( %) (Auto) 38.5, Monocytes (%) (Auto) 10.2H, Eosinophils (%) (Auto) 3.9H, Basophils (%) (Auto) 1.1, Sodium Level 141, Potassium Level 3.9, Chloride Level 106, Carbon Dioxide Level 25, Anion Gap 10, Blood Urea Nitrogen 19H, Creatinine 0.9, Estimat Glomerular Filtration Rate > 60, Glucose Level 102, Calcium Level 9.0 Height (Feet): 5 Height (Inches): 11.00 Weight (Pounds): 249 Respiratory/Chest: lungs clear Abdomen: soft Carley Temple MD Mar 18, 2018 12:41
--- NOTE | 2018-03-18 13:16 | Infectious Diseases Prog Note ---
Assessment/Plan Assessment/Plan A; mild cystitis Dysuria Schizophrenia Bipolar disorder P: Continue Rocephin At time of discharge Po Levaquin X 5 days Subjective ROS Limited/Unobtainable: No Constitutional: Reports: no symptoms Respiratory: Reports: no symptoms Gastrointestinal/Abdominal: Reports: no symptoms Genitourinary: Reports: dysuria Musculoskeletal: Reports: no symptoms Allergies: Coded Allergies: HYDROCODONE (Verified Allergy, Unknown, 03/16/18) MORPHINE (Verified Allergy, Unknown, 03/16/18) Objective Vital Signs Last 24 Hour Vital Signs Date Time Temp Pulse Resp B/P (MAP) Pulse Ox O2 Delivery O2 Flow Rate FiO2 03/18/18 12:00 98.7 94 19 137/41 (73) 94 98.7 03/18/18 10:42 96 18 Room Air 21 03/18/18 09:00 Room Air 03/18/18 08:50 97.9 03/18/18 08:20 97.9 03/18/18 08:00 98.0 113 18 120/89 (99) 95 98.0 96 03/18/18 04:00 97.9 94 20 155/96 (115) 97 97.9 03/18/18 00:00 97.7 102 20 144/93 (110) 93 97.7 03/17/18 21:00 Room Air 03/17/18 20:00 97.5 102 18 132/93 (106) 94 97.5 03/17/18 16:00 98.1 100 19 138/89 (105) 94 98.1 Height (Feet): 5 Height (Inches): 11.00 Weight (Pounds): 249 HEENT: mucous membranes moist Respiratory/Chest: lungs clear Cardiovascular: normal rate Abdomen: soft, non tender Genitourinary: normal external genitalia Extremities: no edema Neurologic/Psychiatric: alert, responsive Microbiology Date/Time Source Procedure Growth Status 03/16/18 14:45 Nasal Nares MRSA Culture - Final Staphylococcus Aureus - Mrsa Complete 03/16/18 14:45 Rectum VRE Culture - Final NO VANCOMYCIN RESISTANT ENTEROCOCCUS ... Complete 03/16/18 14:45 Rectum - Final NO CARBAPENEM-RESISTANT ENTEROBACTERI... Complete Laboratory Tests Test 03/18/18 05:10 White Blood Count 9.4 K/UL (4.8-10.8) Red Blood Count 4.81 M/UL (4.70-6.10) Hemoglobin 14.0 G/DL (14.2-18.0) L Hematocrit 41.4 % (42.0-52.0) L Mean Corpuscular Volume 86 FL (80-99) Mean Corpuscular Hemoglobin 29.1 PG (27.0-31.0) Mean Corpuscular Hemoglobin Concent 33.9 G/DL (32.0-36.0) Red Cell Distribution Width 12.0 % (11.6-14.8) Platelet Count 277 K/UL (150-450) Mean Platelet Volume 6.0 FL (6.5-10.1) L Neutrophils (%) (Auto) 46.3 % (45.0-75.0) Lymphocytes (%) (Auto) 38.5 % (20.0-45.0) Monocytes (%) (Auto) 10.2 % (1.0-10.0) H Eosinophils (%) (Auto) 3.9 % (0.0-3.0) H Basophils (%) (Auto) 1.1 % (0.0-2.0) Sodium Level 141 MMOL/L (136-145) Potassium Level 3.9 MMOL/L (3.5-5.1) Chloride Level 106 MMOL/L (98-107) Carbon Dioxide Level 25 MMOL/L (21-32) Anion Gap 10 mmol/L (5-15) Blood Urea Nitrogen 19 mg/dL (7-18) H Creatinine 0.9 MG/DL (0.55-1.30) Estimat Glomerular Filtration Rate > 60 mL/min (>60) Glucose Level 102 MG/DL (74-106) Calcium Level 9.0 MG/DL (8.5-10.1) Current Medications Medications (Trade) Dose Ordered Sig/Temi Route PRN Reason Start Time Stop Time Status Last Admin Dose Admin Acetaminophen (Tylenol) 325 mg Q6H PRN ORAL For Pain Level <=5 03/16/18 18:30 04/15/18 18:29 03/18/18 08:20 Albuterol/ Ipratropium (Albuterol/ Ipratropium) 3 ml Q4H PRN HHN Shortness of Breath 03/16/18 17:15 03/21/18 17:14 Barium Sulfate (Readi-Cat 2) 450 ml NOW PRN ORAL Radiology Procedure 03/16/18 17:45 03/18/18 17:44 Bupropion HCl (Wellbutrin SR) 100 mg DAILY ORAL 03/18/18 09:00 04/17/18 08:59 03/18/18 08:19 Ceftriaxone Sodium 1 gm/ Dextrose 55 ml @ 110 mls/hr DAILY IVPB 03/17/18 09:00 03/24/18 08:59 03/18/18 08:31 Docusate Sodium (Colace) 100 mg TWICE A DAY ORAL 03/17/18 18:00 04/16/18 17:59 03/18/18 08:18 Famotidine (Pepcid) 20 mg BIDBL ORAL 03/17/18 06:30 04/16/18 06:29 03/18/18 12:24 Gabapentin (Neurontin) 600 mg THREE TIMES A DAY ORAL 03/17/18 13:00 04/15/18 12:59 03/18/18 12:24 Iopamidol (Isovue-300 100ml) 100 ml NOW PRN INJ Radiology Procedure 03/16/18 17:45 03/18/18 17:44 Lamotrigine (LaMICtal) 150 mg DAILY ORAL 03/17/18 09:00 04/16/18 08:59 03/18/18 08:19 [place] Carbonate ([place] Carbonate) 600 mg BEDTIME ORAL 03/17/18 21:00 04/16/18 20:59 03/17/18 21:16 Tamsulosin HCl (Flomax) 0.4 mg BEDTIME ORAL 03/16/18 22:00 04/15/18 21:59 03/17/18 21:16 Abundio Gleason MD Mar 18, 2018 13:16
--- NOTE | 2018-03-18 13:41 | General Progress Note ---
Assessment/Plan Problem List: (1) Schizophrenia ICD Codes: F20.9 - Schizophrenia, unspecified SNOMED: 11583073 Qualifiers: Qualified Codes: F20.9 - Schizophrenia, unspecified (2) Bipolar 1 disorder ICD Codes: F31.9 - Bipolar disorder, unspecified SNOMED: 475799062 Assessment/Plan Wellbutrin was decrease to 100mg qam Remeron 15mg was change to qhs start lithium Subjective Date patient seen: Mar 18, 2018 Neurologic/Psychiatric: Reports: anxiety, depressed, emotional problems Allergies: Coded Allergies: HYDROCODONE (Verified Allergy, Unknown, 03/16/18) MORPHINE (Verified Allergy, Unknown, 03/16/18) Objective Last 24 Hour Vital Signs Date Time Temp Pulse Resp B/P (MAP) Pulse Ox O2 Delivery O2 Flow Rate FiO2 03/18/18 12:00 98.7 94 19 137/41 (73) 94 98.7 03/18/18 10:42 96 18 Room Air 21 03/18/18 09:00 Room Air 03/18/18 08:50 97.9 03/18/18 08:20 97.9 03/18/18 08:00 98.0 113 18 120/89 (99) 95 98.0 96 03/18/18 04:00 97.9 94 20 155/96 (115) 97 97.9 03/18/18 00:00 97.7 102 20 144/93 (110) 93 97.7 03/17/18 21:00 Room Air 03/17/18 20:00 97.5 102 18 132/93 (106) 94 97.5 03/17/18 16:00 98.1 100 19 138/89 (105) 94 98.1 Intake and Output 03/17/18 03/18/18 19:00 07:00 Intake Total 695 ml 720 ml Output Total 1475 ml 2100 ml Balance -780 ml -1380 ml Intake Oral 640 ml 720 ml IV Total 55 ml Output Urine Total 1475 ml 2100 ml Laboratory Tests 03/18/18 05:10: White Blood Count 9.4, Red Blood Count 4.81, Hemoglobin 14.0L, Hematocrit 41.4L , Mean Corpuscular Volume 86, Mean Corpuscular Hemoglobin 29.1, Mean Corpuscular Hemoglobin Concent 33.9, Red Cell Distribution Width 12.0, Platelet Count 277, Mean Platelet Volume 6.0L, Neutrophils (%) (Auto) 46.3, Lymphocytes ( %) (Auto) 38.5, Monocytes (%) (Auto) 10.2H, Eosinophils (%) (Auto) 3.9H, Basophils (%) (Auto) 1.1, Sodium Level 141, Potassium Level 3.9, Chloride Level 106, Carbon Dioxide Level 25, Anion Gap 10, Blood Urea Nitrogen 19H, Creatinine 0.9, Estimat Glomerular Filtration Rate > 60, Glucose Level 102, Calcium Level 9.0 Height (Feet): 5 Height (Inches): 11.00 Weight (Pounds): 249 General Appearance: no apparent distress, alert Neurologic: oriented x 3, responsive Kaveh Kitchen MD Mar 18, 2018 13:41
[2018-03-18 16:00] VITALS: BP 139/97
[2018-03-18 20:00] VITALS: BP 124/75
[2018-03-18] MEDS: Tamsulosin 0.4mg cap ORAL SCH (20:23)
[2018-03-19 00:37] VITALS: BP 129/90
[2018-03-19 04:23] VITALS: BP 126/88
[2018-03-19 06:15] LABS: BASOPHILS % (AUTO) 0.8 % (0.0-2.0); HEMATOCRIT 41.9 % (42.0-52.0); LYMPHOCYTES % (AUTO) 32.1 % (20.0-45.0); MEAN CORPUSCULAR VOLUME 86 FL (80-99); MONOCYTES % (AUTO) 9.4 % (1.0-10.0); NEUTROPHILS % (AUTO) 53.7 % (45.0-75.0); PLATELET COUNT 279 K/UL (150-450); RED BLOOD COUNT 4.88 M/UL (4.70-6.10); RED CELL DISTRIBUTION WIDTH 12.1 % (11.6-14.8); WHITE BLOOD COUNT 9.8 K/UL (4.8-10.8)
[2018-03-19 06:34] LABS: ANION GAP 10 mmol/L (5-15); BLOOD UREA NITROGEN 19 mg/dL (7-18); CARBON DIOXIDE 24 MMOL/L (21-32); CHLORIDE 106 MMOL/L (98-107); CREATININE 0.9 MG/DL (0.55-1.30); POTASSIUM 3.7 MMOL/L (3.5-5.1); SODIUM 140 MMOL/L (136-145)
[2018-03-19 08:00] VITALS: BP 135/90
[2018-03-19] MEDS: LaMICtal 150mg tab ORAL SCH (08:36)
[2018-03-19] MEDS: BuPROPion SR 100mg tab ORAL SCH (08:36)
[2018-03-19] MEDS: Docusate 100mg cap ORAL SCH ×2 (08:36→17:31)
[2018-03-19] MEDS: cefTRIAXone 1 GM in D5W 55 ML IVPB SCH (08:58)
[2018-03-19 12:00] VITALS: BP 125/86
[2018-03-19 15:54] VITALS: BP 123/79
--- NOTE | 2018-03-19 16:53 | General Progress Note ---
Assessment/Plan Problem List: (1) Schizophrenia ICD Codes: F20.9 - Schizophrenia, unspecified SNOMED: 23965707 Qualifiers: Qualified Codes: F20.9 - Schizophrenia, unspecified (2) Dysuria ICD Codes: R30.0 - Dysuria SNOMED: 39741177 (3) Hematuria ICD Codes: R31.9 - Hematuria, unspecified SNOMED: 77387996 (4) Bipolar 1 disorder ICD Codes: F31.9 - Bipolar disorder, unspecified SNOMED: 252668301 (5) Urethritis ICD Codes: N34.2 - Other urethritis SNOMED: 24341319 Status: progressing Assessment/Plan uti improving dc in am dysurea improving Subjective ROS Limited/Unobtainable: Yes Allergies: Coded Allergies: HYDROCODONE (Verified Allergy, Unknown, 03/16/18) MORPHINE (Verified Allergy, Unknown, 03/16/18) Objective Last 24 Hour Vital Signs Date Time Temp Pulse Resp B/P (MAP) Pulse Ox O2 Delivery O2 Flow Rate FiO2 03/19/18 15:54 97.8 89 18 123/79 (94) 100 97.8 03/19/18 12:00 98.1 93 20 125/86 (99) 93 98.1 03/19/18 08:04 98 18 Room Air 21 03/19/18 08:00 97.1 99 18 135/90 (105) 94 97.1 03/19/18 04:23 97.4 83 18 126/88 (101) 96 97.4 03/19/18 00:37 98.0 91 18 129/90 (103) 96 98.0 03/18/18 23:28 Room Air 03/18/18 20:00 98.2 94 18 124/75 (91) 94 98.2 03/18/18 19:49 97 18 Room Air 21 Intake and Output 03/18/18 03/19/18 19:00 07:00 Intake Total 1310 ml Output Total 700 ml Balance 1310 ml -700 ml IV Total 110 ml Other 1200 ml Output Urine Total 700 ml # Voids 4 # Bowel Movements 2 Laboratory Tests 03/19/18 04:40: White Blood Count 9.8, Red Blood Count 4.88, Hemoglobin 14.0L, Hematocrit 41.9L , Mean Corpuscular Volume 86, Mean Corpuscular Hemoglobin 28.7, Mean Corpuscular Hemoglobin Concent 33.5, Red Cell Distribution Width 12.1, Platelet Count 279, Mean Platelet Volume 6.2L, Neutrophils (%) (Auto) 53.7, Lymphocytes ( %) (Auto) 32.1, Monocytes (%) (Auto) 9.4, Eosinophils (%) (Auto) 4.0H, Basophils (%) (Auto) 0.8, Sodium Level 140, Potassium Level 3.7, Chloride Level 106, Carbon Dioxide Level 24, Anion Gap 10, Blood Urea Nitrogen 19H, Creatinine 0.9, Estimat Glomerular Filtration Rate > 60, Glucose Level 105, Calcium Level 9.0 Height (Feet): 5 Height (Inches): 11.00 Weight (Pounds): 249 Cardiovascular: regular rhythm Respiratory/Chest: lungs clear Carley Temple MD Mar 19, 2018 16:53
[2018-03-19 20:00] VITALS: BP 135/91
[2018-03-19] MEDS: Tamsulosin 0.4mg cap ORAL SCH (20:46)
[2018-03-20] VITALS: BP 113/74
[2018-03-20 04:00] VITALS: BP 130/88
[2018-03-20 08:00] VITALS: BP 143/96
[2018-03-20] MEDS: LaMICtal 150mg tab ORAL SCH (08:55)
[2018-03-20] MEDS: Docusate 100mg cap ORAL SCH ×2 (08:55→17:05)
[2018-03-20] MEDS: BuPROPion SR 100mg tab ORAL SCH (08:55)
[2018-03-20] MEDS: cefTRIAXone 1 GM in D5W 55 ML IVPB SCH (08:55)
--- NOTE | 2018-03-20 11:14 | Infectious Diseases Prog Note ---
Assessment/Plan Assessment/Plan A; mild cystitis Dysuria Schizophrenia Bipolar disorder P: discontinue Rocephin At time of discharge Po Levaquin X 5 days Subjective ROS Limited/Unobtainable: No Constitutional: Reports: no symptoms Respiratory: Reports: no symptoms Cardiovascular: Reports: no symptoms Gastrointestinal/Abdominal: Reports: no symptoms Genitourinary: Reports: dysuria Musculoskeletal: Reports: no symptoms Allergies: Coded Allergies: HYDROCODONE (Verified Allergy, Unknown, 03/16/18) MORPHINE (Verified Allergy, Unknown, 03/16/18) Objective Vital Signs Last 24 Hour Vital Signs Date Time Temp Pulse Resp B/P (MAP) Pulse Ox O2 Delivery O2 Flow Rate FiO2 03/20/18 08:29 95 18 Room Air 21 03/20/18 08:00 97.8 88 17 143/96 (112) 97.8 03/20/18 04:00 98.1 80 18 130/88 (102) 95 98.1 03/20/18 00:00 98.1 85 18 113/74 (87) 96 98.1 03/19/18 20:00 98.2 87 18 135/91 (106) 99 98.2 03/19/18 19:45 93 16 Room Air 21 03/19/18 15:54 97.8 89 18 123/79 (94) 100 97.8 03/19/18 12:00 98.1 93 20 125/86 (99) 93 98.1 Height (Feet): 5 Height (Inches): 11.00 Weight (Pounds): 249 General Appearance: no acute distress HEENT: mucous membranes moist Respiratory/Chest: lungs clear Cardiovascular: normal rate Abdomen: soft, non tender Extremities: no edema Neurologic/Psychiatric: alert, responsive Current Medications Medications (Trade) Dose Ordered Sig/Temi Route PRN Reason Start Time Stop Time Status Last Admin Dose Admin Acetaminophen (Tylenol) 325 mg Q6H PRN ORAL For Pain Level <=5 03/16/18 18:30 04/15/18 18:29 03/18/18 08:20 Albuterol/ Ipratropium (Albuterol/ Ipratropium) 3 ml Q4H PRN HHN Shortness of Breath 03/16/18 17:15 03/21/18 17:14 Bupropion HCl (Wellbutrin SR) 100 mg DAILY ORAL 03/18/18 09:00 04/17/18 08:59 03/20/18 08:55 Ceftriaxone Sodium 1 gm/ Dextrose 55 ml @ 110 mls/hr DAILY IVPB 03/17/18 09:00 03/24/18 08:59 03/20/18 08:55 Diphenhydramine HCl (Benadryl) 25 mg Q4H PRN ORAL Itching 03/20/18 09:30 04/19/18 09:29 03/20/18 10:45 Docusate Sodium (Colace) 100 mg TWICE A DAY ORAL 03/17/18 18:00 04/16/18 17:59 03/20/18 08:55 Famotidine (Pepcid) 20 mg BIDBL ORAL 03/17/18 06:30 04/16/18 06:29 03/20/18 10:45 Gabapentin (Neurontin) 600 mg THREE TIMES A DAY ORAL 03/17/18 13:00 04/15/18 12:59 03/20/18 08:55 Lamotrigine (LaMICtal) 150 mg DAILY ORAL 03/17/18 09:00 04/16/18 08:59 03/20/18 08:55 Ansted Carbonate (Ansted Carbonate) 600 mg BEDTIME ORAL 03/17/18 21:00 04/16/18 20:59 03/19/18 20:46 Tamsulosin HCl (Flomax) 0.4 mg BEDTIME ORAL 03/16/18 22:00 04/15/18 21:59 03/19/18 20:46 Abundio Gleason MD Mar 20, 2018 11:14
[2018-03-20 11:46] VITALS: BP 129/92
[2018-03-20] MEDS ORDERED: LEVAQUIN750 MG ORAL (14:25)
[2018-03-20] MEDS ORDERED: IBUPROFEN600 MG ORAL (14:29)
[2018-03-20] MEDS ORDERED: KLONOPIN0.5 MG ORAL (14:30)
[2018-03-20 15:55] VITALS: BP 135/94
[2018-03-20 20:00] VITALS: BP 136/95
--- NOTE | 2018-03-20 21:10 | General Progress Note ---
Assessment/Plan Problem List: (1) Schizophrenia ICD Codes: F20.9 - Schizophrenia, unspecified SNOMED: 74044363 Qualifiers: Qualified Codes: F20.9 - Schizophrenia, unspecified (2) Dysuria ICD Codes: R30.0 - Dysuria SNOMED: 77292345 (3) Hematuria ICD Codes: R31.9 - Hematuria, unspecified SNOMED: 54763665 (4) Bipolar 1 disorder ICD Codes: F31.9 - Bipolar disorder, unspecified SNOMED: 236533577 (5) Urethritis ICD Codes: N34.2 - Other urethritis SNOMED: 05790903 Status: progressing Assessment/Plan uti improved snf wouldnt accept him today dc in am dysurea improving itching ordered benadryl afebrile Subjective Allergies: Coded Allergies: HYDROCODONE (Verified Allergy, Unknown, 03/16/18) MORPHINE (Verified Allergy, Unknown, 03/16/18) Subjective itching Objective Last 24 Hour Vital Signs Date Time Temp Pulse Resp B/P (MAP) Pulse Ox O2 Delivery O2 Flow Rate FiO2 03/20/18 19:32 91 18 Room Air 21 03/20/18 15:55 98.1 93 18 135/94 (108) 95 98.1 03/20/18 11:46 98.6 90 18 129/92 (104) 94 98.6 03/20/18 08:29 95 18 Room Air 21 03/20/18 08:00 97.8 88 17 143/96 (112) 97.8 03/20/18 04:00 98.1 80 18 130/88 (102) 95 98.1 03/20/18 00:00 98.1 85 18 113/74 (87) 96 98.1 Intake and Output 03/19/18 03/20/18 19:00 07:00 Intake Total 1320 ml Balance 1320 ml Intake Oral 1320 ml # Voids 6 6 Height (Feet): 5 Height (Inches): 11.00 Weight (Pounds): 249 Respiratory/Chest: lungs clear Abdomen: soft Carley Temple MD Mar 20, 2018 21:10
[2018-03-20] MEDS: Tamsulosin 0.4mg cap ORAL SCH (21:41)
[2018-03-21] VITALS: BP 118/67
[2018-03-21 04:00] VITALS: BP 128/69
[2018-03-21 08:00] VITALS: BP 148/69
[2018-03-21] MEDS: BuPROPion SR 100mg tab ORAL SCH (08:53)
[2018-03-21] MEDS: LaMICtal 150mg tab ORAL SCH (08:53)
[2018-03-21] MEDS: Docusate 100mg cap ORAL SCH (08:53)
--- NOTE | 2018-03-21 11:24 | GI Progress Note ---
Assessment/Plan Problems: (1) Abdominal pain ICD Codes: R10.9 - Unspecified abdominal pain SNOMED: 42018165 (2) Bipolar 1 disorder ICD Codes: F31.9 - Bipolar disorder, unspecified SNOMED: 505899916 (3) Dysuria ICD Codes: R30.0 - Dysuria SNOMED: 63898162 (4) Schizophrenia ICD Codes: F20.9 - Schizophrenia, unspecified SNOMED: 67835431 Qualifiers: Qualified Codes: F20.9 - Schizophrenia, unspecified (5) Urethritis ICD Codes: N34.2 - Other urethritis SNOMED: 63692549 Status: stable Status Narrative Discussed with Dr. Kidd. Assessment/Plan symptomatic treatment at this time, fu urology recs zofran prn colace H2B pain mgmt abx fu labs The patient was seen and examined at bedside and all new and available data was reviewed in the patients chart. I agree with the above findings, impression and plan. (Patient seen earlier today. Signature stamp does not reflect patient encounter time.). - Miguel Kidd MD Subjective Gastrointestinal/Abdominal: Reports: no symptoms Objective Last 24 Hour Vital Signs Date Time Temp Pulse Resp B/P (MAP) Pulse Ox O2 Delivery O2 Flow Rate FiO2 03/21/18 08:17 88 18 Room Air 21 03/21/18 08:00 97.9 100 18 148/69 (95) 100 97.9 03/21/18 04:00 97.8 89 18 128/69 (88) 100 97.8 03/21/18 00:00 97.8 90 18 118/67 (84) 99 97.8 03/20/18 20:00 97.9 94 18 136/95 (109) 98 97.9 03/20/18 19:32 91 18 Room Air 21 03/20/18 15:55 98.1 93 18 135/94 (108) 95 98.1 03/20/18 11:46 98.6 90 18 129/92 (104) 94 98.6 Intake and Output 03/20/18 03/21/18 19:00 07:00 Intake Total 55 ml 1000 ml Output Total 1450 ml 800 ml Balance -1395 ml 200 ml Intake Oral 1000 ml IV Total 55 ml Output Urine Total 1450 ml 800 ml Height (Feet): 5 Height (Inches): 11.00 Weight (Pounds): 249 General Appearance: WD/WN, no apparent distress, alert Cardiovascular: normal rate Respiratory/Chest: normal breath sounds, no respiratory distress Abdominal Exam: normal bowel sounds, non tender, soft Extremities: normal range of motion, non-tender Sandra Teran NP Mar 21, 2018 11:24
[2018-03-21 12:00] VITALS: BP 142/69
--- NOTE | 2018-03-21 12:46 | General Progress Note ---
Assessment/Plan Problem List: (1) Schizophrenia ICD Codes: F20.9 - Schizophrenia, unspecified SNOMED: 24133408 Qualifiers: Qualified Codes: F20.9 - Schizophrenia, unspecified (2) Dysuria ICD Codes: R30.0 - Dysuria SNOMED: 79620975 (3) Hematuria ICD Codes: R31.9 - Hematuria, unspecified SNOMED: 07389757 (4) Bipolar 1 disorder ICD Codes: F31.9 - Bipolar disorder, unspecified SNOMED: 809266003 (5) Urethritis ICD Codes: N34.2 - Other urethritis SNOMED: 83719425 Status: progressing Assessment/Plan uti improved dc to snf today so see dc summary for details Subjective ROS Limited/Unobtainable: Yes Allergies: Coded Allergies: HYDROCODONE (Verified Allergy, Unknown, 03/16/18) MORPHINE (Verified Allergy, Unknown, 03/16/18) Subjective itching Objective Last 24 Hour Vital Signs Date Time Temp Pulse Resp B/P (MAP) Pulse Ox O2 Delivery O2 Flow Rate FiO2 03/21/18 12:00 98.6 102 18 142/69 (93) 100 98.6 03/21/18 08:17 88 18 Room Air 21 03/21/18 08:00 97.9 100 18 148/69 (95) 100 97.9 03/21/18 04:00 97.8 89 18 128/69 (88) 100 97.8 03/21/18 00:00 97.8 90 18 118/67 (84) 99 97.8 03/20/18 20:00 97.9 94 18 136/95 (109) 98 97.9 03/20/18 19:32 91 18 Room Air 21 03/20/18 15:55 98.1 93 18 135/94 (108) 95 98.1 Intake and Output 03/20/18 03/21/18 19:00 07:00 Intake Total 55 ml 1000 ml Output Total 1450 ml 800 ml Balance -1395 ml 200 ml Intake Oral 1000 ml IV Total 55 ml Output Urine Total 1450 ml 800 ml Height (Feet): 5 Height (Inches): 11.00 Weight (Pounds): 249 Carley Temple MD Mar 21, 2018 12:46
--- NOTE | 2018-03-23 11:54 | Discharge Summary ---
Discharge Summary Discharge Summary _ DATE OF ADMISSION: 03/16/2018 DATE OF DISCHARGE: 03/21/2018 REASON FOR ADMISSION: 52 years old male with history of schizophrenia, chronic back pain, osteoarthritis, presented with penile pain with urination for few days. He denied blood in the urine. He denied fever and chills. He denied any difficulty with bowel movement, no abdominal pain . No recent sexual activity. No testicular pain. Upon evaluation vital signs revealed elevated blood pressure 164/86 and tachycardia with heart rate 105 . Urinalysis revealed no evidence of UTI. Mild leukocytosis WBC 11.5 ,stable hemoglobin and hematocrit ,stable renal parameters and electrolytes. Patient admitted with diagnoses of urethritis, mild cystitis ,schizophrenia , bipolar disorder. CONSULTANTS: ID specialist Dr. Pruett GI specialist urologist Dr. Salinas psychiatrist [facility]SE: Patient admitted and started on IV hydration and empiric antibiotics. CT of the abdomen and pelvis revealed mild bladder wall thickening, possibly indicative of mild cystitis changes. No definite acute upper urinary tract abnormalities or upper urinary tract findings to suggest etiology of dysuria or hematuria. Fatty liver noted. Urology consult was requested. Urologist seen and evaluated patient, and recommended to continue with antibiotic treatment. He also started patient on Flomax in effort to alleviate his symptoms. He cleared patient for discharge and recommended follow-up as outpatient as needed. Infectious disease specialist followed. Patient initially was on empiric intravenous antibiotic. Upon discharge IV antibiotic was changed to oral to complete the course for additional 5 days. Patient afebrile and initial leukocytosis resolved. GI specialist closely followed and recommended symptomatic treatment . Bowel regimen instituted . Antiemetics provided as needed. GI prophylaxis with H2 dany provided. Pain management was addressed as needed. Psychiatrist closely followed. Psychiatrist optimized psychiatric medication regimen. Patient clinically improved and was stable for discharge FINAL DIAGNOSES: Urethritis Mild cystitis Schizophrenia Bipolar type I DISCHARGE MEDICATIONS: See Medication Reconciliation list. DISCHARGE INSTRUCTIONS: Patient was discharged to the half-way facility. Follow up with medical doctor at the facility. I have been assigned to dictate discharge summary for this account. I was not involved in the patient's management. Cony Hui NP Mar 23, 2018 11:54
== END 2018-03-21 12:45 | DRG 690 ==
LOC: EDBD 10:57 → EMR 12:30 → OBSVTOIN 14:26 → 4E 14:26 → EDBEDREQ 15:12 → 4E 03-17 05:16
DX: N34.2 Other urethritis (principal); N30.90 Cystitis, unspecified without hematuria; F31.9 Bipolar disorder, unspecified; F20.9 Schizophrenia, unspecified; G89.29 Other chronic pain; M54.9 Dorsalgia, unspecified; M19.90 Unspecified osteoarthritis, unspecified site; K76.0 Fatty (change of) liver, not elsewhere classified; Z88.6 Allergy status to analgesic agent; F17.200 Nicotine dependence, unspecified, uncomplicated; F10.21 Alcohol dependence, in remission
CPT/HCPCS: 36415; 74178; 80048; 80053; 81003; 85025; 87081; 87491; 87590; 94664; 99285